=== PATIENT | female | born 1960 | race Caucasian/White ===

== ENCOUNTER 2020-01-04 00:31 | Emergency (ER) | payer OTHER, SELFPAY ==
[2020-01-04 00:50] VITALS: BP 142/93; PULSE 87; RESP 20; TEMP 37.1; O2SAT 95
--- NOTE | 2020-01-04 01:47 | ED.PSYCH ---
HPI - Psych General Chief Complaint: Psychiatric Symptoms <Douglas Ennis MD - Last Filed: 01/04/20 05:22> Stated Complaint: SI <Douglas Ennis MD - Last Filed: 01/04/20 05:22> Time Seen by Provider: 01/04/20 01:17 <Douglas Ennis MD - Last Filed: 01/04/20 05:22> History of Present Illness HPI Narrative: Patient is a 59-year-old female who presents to the ER with concerns for suicidal ideation. Patient is currently from her 27 years and they are discussing potential divorce. There is a heated exchange earlier in the day the patient was discussing her options and life never to be , not worse, or she could end her own life. This struck her cord with 1 of her sons who told her other son. That person then came over to her house check on her in the door. Argument ensued and police were contacted. She was then brought here for psychiatric evaluation. Patient has been drinking alcohol tonight. Patient reports she has history of previous suicide attempt during her first divorce back in the 80s in which she took a handful of pills to end her life. She has had no such attempts in her life since then. She denies any suicidal ideation or homicidal ideation at this time. She does not have any hallucinations. She also reports that she is started seeing a psychologist and her first meeting with a psychologist was yesterday. <Douglas Ennis MD - Last Filed: 01/04/20 05:22> Related Data Home Medications: Home Medications Medication Instructions Recorded Confirmed multivitamin 1 tablet PO DAILY 01/04/20 <Douglas Ennis MD - Last Filed: 01/04/20 05:22> Allergies/Adverse Reactions: Allergies Allergy/AdvReac Type Severity Reaction Status Date / Time Penicillins Allergy Unknown Other Verified 01/04/20 01:29 <Douglas Ennis MD - Last Filed: 01/04/20 05:22> Review of Systems Review of Systems: All systems reviewed & are unremarkable except as noted in HPI and below <Douglas Ennis MD - Last Filed: 01/04/20 05:22> Constitutional: Constitutional: Denies chills, Denies fever(s) and Denies weakness <Douglas Ennis MD - Last Filed: 01/04/20 05:22> ENT: Denies nasal congestion and Denies sore throat <Douglas Ennis MD - Last Filed: 01/04/20 05:22> Respiratory: Respiratory: Denies cough, Denies dyspnea and Denies wheezing <Douglas Ennis MD - Last Filed: 01/04/20 05:22> Gastrointestinal: Gastrointestinal: Denies abdominal pain, Denies nausea and Denies vomiting <Douglas Ennis MD - Last Filed: 01/04/20 05:22> Psychiatric: Psychiatric: Denies anxiety, Denies depression, Denies homicidal ideation and Denies suicidal ideation <Douglas Ennis MD - Last Filed: 01/04/20 05:22> PMFSH Past Medical History Medical History: Medical History (Updated 01/04/20 @ 08:53 by Estrella Martinez MD) AV leo re-entry tachycardia History of coronary artery disease History of left heart catheterization Non-ST elevation [place] (NSTEMI) <Douglas Ennis MD - Last Filed: 01/04/20 05:22> Surgical History Surgical History: Surgical History (Updated 01/04/20 @ 05:20 by Douglas Ennis MD) H/O cardiac radiofrequency ablation History of section History of D&C History of endometrial ablation <Douglas Ennis MD - Last Filed: 01/04/20 05:22> Social History Social History: Social History (Updated 01/04/20 @ 05:20 by Douglas Ennis MD) Smoking status: Current every day smoker Alcohol intake: current <Douglas Ennis MD - Last Filed: 01/04/20 05:22> Exam Narrative: Exam Narrative: GENERAL: Well-appearing, well-nourished, upset but in no acute distress. HEAD: Normocephalic, atraumatic. ENT: Mucous membranes moist. CHEST: Clear to auscultation. No respiratory distress. HEART: Regular rate and rhythm. Normal peripheral pulses. EXTREMITIES: Normal range of motion. No edema. SKIN: Warm, dry, no
[2020-01-04 02:14] LABS: Basophils Percent Auto 0.4 % (0.2-1.2); Eosinophils Absolute Auto 0.2 K/mm3 (0-0.3); Hematocrit 45.7 % (37.0-47.0); Hemoglobin 15.4 g/dL (12.0-15.0); Immature Granulocyte Absolute 0.02 K/mm3 (0.00-0.031); Immature Granulocyte Percent A 0.2 % (0-0.5); Mean Corpuscular HGB Conc 33.7 g/dl (32-36); Mean Corpuscular Hemoglobin 32.6 pg (26-34); Mean Corpuscular Volume 96.6 fl (80-100); Mean Platelet Volume 9.3 fl (7.4-10.4); Monocytes Absolute Auto 0.5 K/mm3 (0.1-0.6); Monocytes Percent Auto 5.3 % (2.6-8.5); Neutrophils Absolute Auto 5.1 K/mm3 (1.3-6.7); Neutrophils Percent Auto 60.1 % (45.5-73.1); Platelet Count Result 244 k/mm3 (150-375); Red Blood Count 4.73 M/mm3 (4.2-5.4); Red Cell Distribution Width 12.4 % (11.5-14.5); White Blood Count 8.5 K/mm3 (4.5-10.0)
[2020-01-04 02:21] LABS: Add Urine Microscopic? NO; Appearance Urine Clear (Clear); Bilirubin Urine Negative (Negative); Blood Urine Negative (Negative); Color Urine Straw (Yellow); Glucose Urine UA Negative (Negative); Ketones Urine Negative (Negative); Leukocyte Esterase Ur Negative LEU/UL (Negative); Nitrate Urine Negative (Negative); Protein Urine Negative (Negative); Urobilinogen Urine Negative mg/dL (<2.0)
[2020-01-04 02:23] LABS: Specific Grav Ur 1.004 (1.001-1.035)
[2020-01-04 02:27] LABS: Alanine Aminotransferase 49 U/L (4-35); Albumin Level 4.7 g/dL (3.5-5.1); Alkaline Phosphatase 68 U/L (38-126); Aspartate Amino Transferase 45 U/L (14-36); Bilirubin,Total 0.2 mg/dL (0.2-1.3); Blood Urea Nitrogen 14 mg/dL (7-17); Calcium 9.9 mg/dL (8.4-10.2); Carbon Dioxide 24 mmol/L (22-30); Chloride 106 mmol/L (98-107); Estimated CRCL calculation 110 ml/min; Estimated Glomerular Filt Rate > 60; Glucose 115 mg/dL (65-105); Potassium 3.7 mmol/L (3.4-5.0); Sodium 139 mmol/L (137-145)
[2020-01-04 02:56] LABS: Ethanol 187 mg/dL (<10)
--- NOTE | 2020-01-04 03:20 | PC.NURSE ---
Patient requested to speak with tattoo designer.
[2020-01-04 03:31] LABS: Barbiturate Screen Urine Negative (Negative); Benzodiazepines Screen Urine Negative (Negative)
[2020-01-04 03:42] LABS: Amphetamine Screen Urine Negative (Negative); Cannabinoid Screen Urine Negative (Negative); Cocaine Screen Urine Negative (Negative); Methadone Screen Urine Negative (Negative); Opiate Screen Urine Negative (Negative); Phencyclidine Screen Urine Negative (Negative)
[2020-01-04] MEDS: LORAZEPAM 1 MG TABLET PO (03:45)
[2020-01-04 06:15] VITALS: BP 156/89; PULSE 91; RESP 20; TEMP 37.1; O2SAT 96
--- NOTE | 2020-01-04 06:18 | PC.NURSE ---
Patient offered a breakfast menu and informed of her meal options, patient states I don't want anything to eat.
[2020-01-04 06:29] LABS: Ethanol 61 mg/dL (<10)
--- NOTE | 2020-01-04 06:31 | PC.NURSE ---
Patient's blood alcohol is below legal limit and per patient is medically cleared at this time and crisis can be contacted.
--- NOTE | 2020-01-04 06:32 | PC.NURSE ---
This nurse contacted Crisis and spoke with Demetrio in regards to having patient evaluated. Demetrio stated he will send someone out shortly to evaluate the patient.
--- NOTE | 2020-01-04 07:03 | PC.NURSE ---
Pt daughter Barbara Siddiqui here for an update on pt. She wishes to be called with an update. [phone]
[2020-01-04 09:13] VITALS: PULSE 90; RESP 20; O2SAT 98
--- NOTE | 2020-01-04 09:15 | PC.NURSE ---
0845 CRISIS HERE AND SAFETY CONTRACT SIGNED PT BEING DISCHARGED
== END 2020-01-04 09:15 | disposition home or self-care (01) ==
PROVIDERS: Emergency Medicine; Emergency Provider Emergency Medicine; PCP Family Medicine Adolescent Medicine
DX: R45.851 Suicidal ideations (principal); I25.2 Old myocardial infarction; I25.10 Atherosclerotic heart disease of native coronary artery without angina pectoris; F17.200 Nicotine dependence, unspecified, uncomplicated
CPT/HCPCS: 36415; 80053; 80307; 81003; 81025; 84443; 85025; 99284; A9270

== ENCOUNTER 2020-05-22 12:05 | Outpatient (NON) | payer OTHER, SELFPAY ==
[2020-05-23 19:52] LABS: SARS-CoV-2 RNA PCR Negative
== END 2020-05-22 12:06 ==
LOC: ANHCOVIDDT 12:05
PROVIDERS: PCP Family Medicine Adolescent Medicine; Visit Provider Family Medicine Adolescent Medicine
DX: Z20.828 Contact with and (suspected) exposure to other viral communicable diseases (principal); R05 Cough; R51.9 Headache, unspecified; R53.81 Other malaise
CPT/HCPCS: 87635; C9803; U0003

== ENCOUNTER 2023-04-16 07:59 | Emergency (ER) | payer BC, SELFPAY ==
--- NOTE | ~2023-04-16 | CT_ITS ---
EXAMINATION: CT brain wo con DATE: 04/16/2023 15:46 INDICATION: AMS . TECHNIQUE: Computed tomography (CT) of the head was performed without intravenous contrast. The mA wa s adjusted according to patient size. Iterative reconstruction technique was employed. The dose-lengt h product was 529.67 mGy-cm. COMPARISON: None. FINDINGS: No acute intracranial hemorrhage or extra-axial fluid collection. No hydrocephalus, mass, or herniation. No acute ischemic infarct. Unremarkable dural venous sinus attenuation. No acute osseous abnormality. Ethmoid mucosal thickening, trace left mastoid fluid, the remaining aerated spaces are clear. Mild atrophy and chronic white matter change. Atherosclerotic intracranial calcification. Bilateral l ens replacements. IMPRESSION: No acute intracranial process. Reviewed, dictated and finalized at location K.
--- NOTE | ~2023-04-16 | XR_ITS ---
XR chest 1V portable DATE: 04/16/2023 09:20 INDICATION: Anxiety, agitation TECHNIQUE: Portable AP chest on at 0915 hours COMPARISON: 04/02/2018 PA and lateral chest FINDINGS: Borderline heart size. There is aortic calcification and mild unfolding. There is pulmonary vascular redistribution suggesting pulmonary venous hypertension. No pulmonary consolidation., Pleural effusion or pneumothorax is detected. Osteopenia. Degenerative spurring of the thoracic spine. IMPRESSION: Borderline heart size and pulmonary vascular redistribution, suggesting mild congestive c hange Aortic atherosclerosis Osteopenia Reviewed, dictated and finalized at location A. IMPRESSION: Borderline heart size and pulmonary vascular redistribution, sugges ting mild congestive change Aortic atherosclerosis Osteopenia
[2023-04-16 08:06] VITALS: BP 176/115; PULSE 106; RESP 18; O2SAT 97
--- NOTE | 2023-04-16 08:09 | ED.PSYCH ---
HPI - Psych General Chief Complaint: Psychiatric Symptoms Stated Complaint: ANXIETY Time Seen by Provider: 04/16/23 08:05 Source: patient and family Mode of arrival: ambulatory Limitations: no limitations History of Present Illness HPI Narrative: 62 years old white female came to the emergency room by private car with her complaining of severe anxiety, been taking [id number] sleeping pills, CBD's, cannot sleep, tons of stress and anxiety over the last 3-1/2 years, been in conflict with her daughters over the last few months, was seen by her family physician yesterday and started on mood stabilizer, unknown name, patient drinks vodka daily, patient had suicidal ideation for the last 3-1/2 years got worse lately, does not have a plan. Lately patient been acting confused, saying nonsense, paranoia, hallucinating seeing the staff there, worried about some people following her. Patient never been seen by a psychiatrist, her daughter have history of bipolar. Patient smokes cigarette, drink vodka daily, uses marijuana daily. She denies any fever, chills, nausea, vomiting Related Data Home Medications Medication Instructions Recorded Confirmed multivitamin 1 tablet PO DAILY 01/04/20 04/15/23 Allergies Allergy/AdvReac Type Severity Reaction Status Date / Time Penicillins Allergy Unknown Other Verified 04/16/23 08:18 Review of Systems Review of Systems: All systems reviewed & are unremarkable except as noted in HPI and below PMFSH Past Medical History Medical History AV leo re-entry tachycardia History of coronary artery disease History of left heart catheterization Non-ST elevation [place] (NSTEMI) Surgical History Surgical History H/O cardiac radiofrequency ablation History of section History of D&C History of endometrial ablation Social History Social History Smoking status: Current every day smoker Alcohol intake: current Substance use: current Substance use type: marijuana Exam Narrative: General appearance: Well-developed, well-nourished, restless, agitated Skin: Normal color Head: Normocephalic, nontraumatic Eyes: Clear conjunctiva ENT: Oropharynx normal, ears normal, nose normal Neck: Supple, nontender Chest and respiratory: Airway patent, no respiratory distress, no accessory muscle use Heart: Regular rate/rhythm Abdomen: Soft, nontender, no organomegaly, quiet bowel sounds Vascular: Normal peripheral pulses, normal capillary refill. 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 Date: 04/16/23 Time: 11:36 Vital Signs Vital signs: Vital Signs Pulse Rate 106 H 04/16/23 08:06 Respiratory Rate 18 04/16/23 08:06 Blood Pressure 176/115 H 04/16/23 08:06 Pulse Oximetry 97 04/16/23 08:06 Oxygen Delivery Room Air 04/16/23 08:06 Temperature 36.6 C 04/16/23 11:47 Pulse Rate 91 04/16/23 14:59 Respiratory Rate 14 04/16/23 14:59 Blood Pressure 172/96 H 04/16/23 14:59 Pulse Oximetry 97 04/16/23 14:59 Oxygen Delivery Room Air 04/16/23 08:06 MDM - Psych MDM Narrative Medical decision making narrative: Patient came to the emergency room from home with her
--- NOTE | 2023-04-16 08:26 | ECG_ITS ---
Measurements Intervals [facility] Rate: 85 P: 60 NH: 172 QRS: 35 QRSD: 85 T: 58 QT: 376 QTc: 449 Interpretive Statements SINUS RHYTHM CANNOT RULE OUT INFERIOR INFARCTION, AGE-INDETERMINATE ABNORMAL EKG NO PREVIOUS ECG AVAILABLE FOR COMPARISON Electronically Signed On 04-16-2023 12:30:00 CDT by Eliot Griffin M.D.
[2023-04-16] MEDS: SODIUM CHLORIDE 0.9% IV 1,000 ML 999 ML IV CONT (08:36)
[2023-04-16] MEDS: LORazepam INJ (*CRX) 2 MG/ML VIAL IV PUSH (08:37)
[2023-04-16 08:49] LABS: Basophils Percent Auto 0.4 % (0.2-1.2); Eosinophils Absolute Auto 0.1 K/mm3 (0-0.3); Eosinophils Percent Auto 0.8 % (0-4.4); Hemoglobin 15.2 g/dL (12.0-15.0); Immature Granulocyte Absolute 0.03 K/mm3 (0.00-0.031); Immature Granulocyte Percent A 0.3 % (0-0.5); Lymphocytes Absolute Auto 2.12 K/mm3 (0.9-3.2); Mean Corpuscular HGB Conc 33.8 g/dl (32-36); Mean Corpuscular Hemoglobin 32.5 pg (26-34); Mean Corpuscular Volume 96.2 fl (80-100); Mean Platelet Volume 9.3 fl (7.4-10.4); Monocytes Absolute Auto 0.6 K/mm3 (0.1-0.6); Neutrophils Absolute Auto 8.3 K/mm3 (1.3-6.7); Neutrophils Percent Auto 74.5 % (45.5-73.1); Platelet Count Result 312 k/mm3 (150-375); Red Blood Count 4.68 M/mm3 (4.2-5.4); Red Cell Distribution Width 13.2 % (11.5-14.5); White Blood Count 11.2 K/mm3 (4.5-10.0)
[2023-04-16] MEDS: OLANZapine 5 MG TABLET PO (08:49)
[2023-04-16 08:54] LABS: Appearance Urine Clear (Clear); Bacteria Urine None Seen /hpf; Bilirubin Urine Negative (Negative); Blood Urine Negative (Negative); Color Urine Yellow (Yellow); Glucose Urine UA Negative (Negative); Ketones Urine Negative (Negative); Leukocyte Esterase Ur Negative LEU/UL (Negative); Nitrate Urine Negative (Negative); Non Pathogenic Casts 0-2; Protein Urine Trace mg/dL (Negative); RBC Urine 0-2 /hpf (0-2); Specific Grav Ur 1.005 (1.001-1.035); Squamous Epithelial Cell Urine Occasional /hpf (Few); Urobilinogen Urine 0.2 mg/dL (<2.0); WBC Urine 0-5 /hpf
[2023-04-16 08:56] LABS: INR 0.9; Prothrombin Time 12.2 Seconds (11.1-14.7)
[2023-04-16 08:57] LABS: Partial Thromboplastin Time 38.8 SECONDS (22.3-36.8)
[2023-04-16 08:58] LABS: Acetaminophen < 10 ug/mL (10-30); Alanine Aminotransferase 26 U/L (6-35); Albumin Level 4.8 g/dL (3.5-5.1); Alkaline Phosphatase 70 U/L (38-126); Anion Gap 8 mmol/L (8-16); Aspartate Amino Transferase 32 U/L (14-36); Bilirubin,Total 0.9 mg/dL (0.2-1.3); Blood Urea Nitrogen 5 mg/dL (7-17); Carbon Dioxide 30 mmol/L (22-30); Chloride 93 mmol/L (98-107); Creatine Kinase 172 U/L (30-135); Estimated CRCL calculation 111 ml/min; Estimated Glomerular Filt Rate > 60; Ethanol < 10 mg/dL (<10); Glucose 108 mg/dL (65-110); Potassium 3.7 mmol/L (3.4-5.0); Salicylate < 1.0 mg/dL (2-20); Sodium 131 mmol/L (137-145)
[2023-04-16 09:04] LABS: Amphetamine Screen Urine Negative (Negative); Barbiturate Screen Urine Negative (Negative); Benzodiazepines Screen Urine Negative (Negative); Cannabinoid Screen Urine Positive (Negative); Cocaine Screen Urine Negative (Negative); Methadone Screen Urine Negative (Negative); Opiate Screen Urine Negative (Negative); Phencyclidine Screen Urine Negative (Negative)
[2023-04-16 09:04] LABS: Alveolar/Arterial O2 Gradient 27.5 mmHg; Base Excess ABG 1.5 mEq/l (+/-2.0); Fractional Inspired Oxygen 21 %; HCO3 ABG 25.3 mEq/l (22.0-26.0); Oxygen Content ABG 18.7 %vol (16.0-22.0); Oxygen Saturation ABG 96.1 % (95.0-100.0); Oxyhemoglobin 91.4 % THb (90.0-100.0); PCO2 ABG 37.1 mmHg (35.0-45.0); PO2 ABG 77.8 mmHg (80.0-100.0); Total Hemoglobin 14.5 g/dL (12.0-18.0); pH ABG 7.451 (7.350-7.450)
[2023-04-16 09:05] LABS: Device ROOM AIR; Modified Allen's Test Pass; Site Drawn RIGHT RADIAL
[2023-04-16 09:07] LABS: Add Urine Microscopic? YES
[2023-04-16 09:24] LABS: SARS-CoV-2 RNA PCR Negative (Negative)
--- NOTE | 2023-04-16 10:59 | PC.NURSE ---
Crisis at bedside for pt eval.
[2023-04-16 11:47] VITALS: BP 187/101; PULSE 94; RESP 20; TEMP 36.6; O2SAT 100
--- NOTE | 2023-04-16 12:01 | PC.NURSE ---
pt got food tray
--- NOTE | 2023-04-16 13:15 | PC.NURSE ---
Per Rocio vallejo/ Sarah, pt chart faxed to [phone] at this time.
[2023-04-16 14:59] VITALS: BP 172/96; PULSE 91; RESP 14; O2SAT 97
--- NOTE | 2023-04-16 15:36 | PC.NURSE ---
Carine from [facility] called to inform the facility will accept this pt pending neg CT brain imaging. Discussed w/ EDP Dr Tan and CT ordered as requested.
--- NOTE | 2023-04-16 15:40 | PC.NURSE ---
Pt to CT scan via stretcher at this time.
--- NOTE | 2023-04-16 16:05 | PC.NURSE ---
Neg CT imaging report faxed to [facility] as requested [phone], called office to notify fax was sent.
[2023-04-16] MEDS: LORazepam INJ (*CRX) 2 MG/ML VIAL 1 MG IV PUSH (21:24)
== END 2023-04-16 23:21 | disposition short-term general hospital (02) ==
PROVIDERS: Emergency Provider Emergency Medicine; PCP Family Medicine Adolescent Medicine
DX: F32.A Depression, unspecified (principal); F29 Unspecified psychosis not due to a substance or known physiological condition; R45.851 Suicidal ideations; Z11.52 Encounter for screening for COVID-19; I25.10 Atherosclerotic heart disease of native coronary artery without angina pectoris; I25.2 Old myocardial infarction; F17.210 Nicotine dependence, cigarettes, uncomplicated; Z79.899 Other long term (current) drug therapy; M85.80 Other specified disorders of bone density and structure, unspecified site; I70.0 Atherosclerosis of aorta; R94.31 Abnormal electrocardiogram [ECG] [EKG]
CPT/HCPCS: 36415; 36600; 70450; 71045; 80053; 80307; 81001; 82550; 82805; 84443; 85025; 85610; 85730; 87635; 93005; 96361; 96374; 96375; 99284; 99285; A9270; J2060; J7030

== ENCOUNTER 2023-10-17 16:34 | Outpatient (CLI) | payer BC, SELFPAY ==
[2023-10-17 16:53] LABS: Basophils Absolute Auto 0.1 K/mm3 (0.0-0.1); Basophils Percent Auto 0.6 % (0.2-1.2); Eosinophils Absolute Auto 0.3 K/mm3 (0-0.3); Eosinophils Percent Auto 3.7 % (0-4.4); Hematocrit 42.4 % (37.0-47.0); Hemoglobin 13.8 g/dL (12.0-15.0); Immature Granulocyte Absolute 0.02 K/mm3 (0.00-0.031); Immature Granulocyte Percent A 0.2 % (0-0.5); Lymphocytes Absolute Auto 3.61 K/mm3 (0.9-3.2); Lymphocytes Percent Auto 43.3 % (18.3-44.2); Mean Corpuscular HGB Conc 32.5 g/dl (32-36); Mean Corpuscular Hemoglobin 30.3 pg (26-34); Mean Corpuscular Volume 93.2 fl (80-100); Mean Platelet Volume 8.8 fl (7.4-10.4); Monocytes Absolute Auto 0.4 K/mm3 (0.1-0.6); Monocytes Percent Auto 5.3 % (2.6-8.5); Neutrophils Absolute Auto 3.9 K/mm3 (1.3-6.7); Neutrophils Percent Auto 46.9 % (45.5-73.1); Platelet Count Result 350 k/mm3 (150-375); Red Blood Count 4.55 M/mm3 (4.2-5.4); Red Cell Distribution Width 13.2 % (11.5-14.5); White Blood Count 8.3 K/mm3 (4.5-10.0)
[2023-10-17 19:53] LABS: Alanine Aminotransferase 12 U/L (6-35); Albumin Level 4.4 g/dL (3.5-5.1); Alkaline Phosphatase 75 U/L (38-126); Anion Gap 7 mmol/L (4-12); Aspartate Amino Transferase 21 U/L (14-36); Bilirubin,Total 0.6 mg/dL (0.2-1.3); Blood Urea Nitrogen 12 mg/dL (7-17); Calcium 9.8 mg/dL (8.4-10.2); Carbon Dioxide 23 mmol/L (22-30); Chloride 108 mmol/L (98-107); Cholesterol 232 mg/dL (0-200); Estimated Glomerular Filt Rate > 60; Glucose 95 mg/dL (65-110); HDL Direct 65 mg/dL; Potassium 4.3 mmol/L (3.4-5.0); Sodium 138 mmol/L (137-145); Triglycerides 121 mg/dL (<150)
[2023-10-17 19:55] LABS: LDL Cholesterol Direct 121 mg/dL
[2023-10-18 00:07] LABS: Hemoglobin A1C 5.4 % (<5.7)
== END 2023-10-17 16:35 | disposition home or self-care (01) ==
LOC: ANHLAB 16:36
PROVIDERS: PCP Family Medicine Adolescent Medicine; Visit Provider Nurse Practitioner Family
DX: I25.10 Atherosclerotic heart disease of native coronary artery without angina pectoris (principal); F31.9 Bipolar disorder, unspecified
CPT/HCPCS: 36415; 80053; 80061; 82607; 83036; 84443; 85025

== ENCOUNTER 2024-03-04 13:37 | Emergency (ER) | payer SELFPAY ==
--- NOTE | 2024-03-04 13:43 | PC.NURSE ---
Patient walked out of department as soon as EMS dropped her off. patient left prior to triage
--- NOTE | 2024-03-04 16:16 | ECG_ITS ---
Test Date: 2024-03-04 16:16:32 Measurements Intervals [place] Rate: 117 P: 92 HI: 158 QRS: 39 QRSD: 86 T: 49 QT: 338 QTc: 473 Interpretive Statements SINUS TACHYCARDIA POSSIBLE INFERIOR MYOCARDIAL INFARCTION , PROBABLY OLD [30 ms Q WAVE IN II/aVF] ABNORMAL RHYTHM ECG No previous ECG available for comparison Electronically Signed On 03-06-2024 07:11:09 CDT by Moncho Cruz M.D.
== END 2024-03-04 14:05 | disposition left against medical advice (07) ==
LOC: ANHED 13:47
PROVIDERS: Emergency Provider Student in an Organized Health Care Education/Training Program; PCP Family Medicine Adolescent Medicine
DX: Z53.21 Procedure and treatment not carried out due to patient leaving prior to being seen by health care provider (principal)
CPT/HCPCS: 93005; 99199

== ENCOUNTER 2024-03-04 16:01 | Emergency (ER) | payer SELFPAY ==
[2024-03-04] VITALS (77 sets, daily range): BP systolic 120–213; BP diastolic 60–196; PULSE 64–118; RESP 10–69; TEMP 36.6–37.2; O2SAT 90–100
[2024-03-04 16:45] LABS: BEDSIDEPREGUCG Negative
[2024-03-04 16:47] LABS: Basophils Percent Auto 0.4 % (0.2-1.2); Eosinophils Absolute Auto 0.1 K/mm3 (0-0.3); Eosinophils Percent Auto 1.4 % (0-4.4); Hemoglobin 14.4 g/dL (12.0-15.0); Immature Granulocyte Absolute 0.03 K/mm3 (0.00-0.031); Immature Granulocyte Percent A 0.3 % (0-0.5); Lymphocytes Absolute Auto 2.19 K/mm3 (0.9-3.2); Lymphocytes Percent Auto 23.4 % (18.3-44.2); Mean Corpuscular HGB Conc 33.5 g/dl (32-36); Mean Corpuscular Hemoglobin 31.2 pg (26-34); Mean Corpuscular Volume 93.3 fl (80-100); Mean Platelet Volume 9.6 fl (7.4-10.4); Monocytes Absolute Auto 0.6 K/mm3 (0.1-0.6); Monocytes Percent Auto 6.5 % (2.6-8.5); Neutrophils Absolute Auto 6.4 K/mm3 (1.3-6.7); Platelet Count Result 330 k/mm3 (150-375); Red Blood Count 4.61 M/mm3 (4.2-5.4); Red Cell Distribution Width 13.8 % (11.5-14.5); White Blood Count 9.4 K/mm3 (4.5-10.0)
--- NOTE | 2024-03-04 16:55 | ED.PSYCH ---
HPI - Psych General Chief Complaint: Psychiatric Symptoms <Alvin Macias MD - Last Filed: 03/05/24 14:39> Stated Complaint: psych <Alvin Macias MD - Last Filed: 03/05/24 14:39> Time Seen by Provider: 03/04/24 16:11 <Alvin Macias MD - Last Filed: 03/05/24 14:39> History of Present Illness HPI Narrative: This is a 63-year-old female with a past medical history significant for bipolar schizoaffective depression who presents to the emergency department today via EMS and police. Patient was registered to the patient earlier today when she was dropped off by private vehicle but was not able to be evaluated by physician and had eloped from the emergency department. Today her family members who are present at bedside to provide collateral information states that she was having a psychotic break and having extreme paranoia delusions while at home. She was stating things that were not true and acting as if people are trying to get and hurt her. Patient has a history of this and has had a previous psychiatric episode requiring admission. Unclear if takes any medications presently but she is supposed to be on multiple antipsychotics according the family. Patient was needing chemical restraint in the field and was provided total 350 mg of IM ketamine and placed into 4 point restraints upon arrival to the ED after my [id number]-er-[id number] evaluation. Patient not able to participate in history. Remainder of history provided by family and EMR review. <Alvin Macais MD - Last Filed: 03/05/24 14:39> Related Data Home Medications: Home Medications Medication Instructions Recorded Confirmed multivitamin 1 tablet PO DAILY 01/04/20 08/05/23 <Alvin Macias MD - Last Filed: 03/05/24 14:39> Allergies/Adverse Reactions: Allergies Allergy/AdvReac Type Severity Reaction Status Date / Time Penicillins Allergy Unknown Other Verified 03/04/24 13:39 <Alvin Macias MD - Last Filed: 03/05/24 14:39> Review of Systems Review of Systems: Unable to assess 2/2 to patient's mental status <Alvin Macias MD - Last Filed: 03/05/24 14:39> [facility] Past Medical History Medical History: Medical History AV leo re-entry tachycardia History of coronary artery disease History of left heart catheterization Non-ST elevation [place] (NSTEMI) <Alvin Macias MD - Last Filed: 03/05/24 14:39> Surgical History Surgical History: Surgical History H/O cardiac radiofrequency ablation History of section History of D&C History of endometrial ablation <Alvin Macias MD - Last Filed: 03/05/24 14:39> Social History Social History: Social History Smoking status: Current every day smoker Alcohol intake: current Substance use: current Substance use type: unknown Do You Feel Safe in your Home?: Yes Lack of Transportation: No Lack of Food: Never True Current Housing: I Have Housing Concerned About Future Housing: No Difficulty Paying Gas/Electric Bills: No Difficulty Paying for Meds: No Currently Unemployed: No Education: Bachelor's Degree Difficulty w/ Childcare or Family Care: Decline to Answer <Alvin Macias MD - Last Filed: 03/05/24 14:39> Exam Narrative: GENERAL: Presently chemically restrained in 4 point restraints, not awake but not any acute distress HEAD: [Normocephalic, atraumatic.] Pupils are 3 mm and reactive without any conjunctival injection EYES: [PERRLA and EOMI.] ENT: Nares clear, no rhinorrhea or epistaxis. Mucous membranes moist. NECK: Supple. CHEST: [Clear to auscultation. No respiratory distress.] HEART: [Regular rate and rhythm]. No murmur heard. [Normal peripheral pulses.]
[2024-03-04 16:57] LABS: Ethanol < 10 mg/dL (<10)
[2024-03-04 16:59] LABS: Alanine Aminotransferase 21 U/L (6-35); Albumin Level 4.6 g/dL (3.5-5.1); Alkaline Phosphatase 91 U/L (38-126); Anion Gap 14 mmol/L (4-12); Aspartate Amino Transferase 34 U/L (14-36); Bilirubin,Total 0.7 mg/dL (0.2-1.3); Blood Urea Nitrogen 10 mg/dL (7-17); Calcium 9.8 mg/dL (8.4-10.2); Carbon Dioxide 20 mmol/L (22-30); Chloride 107 mmol/L (98-107); Estimated CRCL calculation 79 ml/min; Estimated Glomerular Filt Rate > 60; Glucose 152 mg/dL (65-110); Potassium 3.2 mmol/L (3.4-5.0); Sodium 141 mmol/L (137-145)
[2024-03-04 17:05] LABS: Add Urine Microscopic? YES; Amphetamine Screen Urine Negative (Negative); Appearance Urine Cloudy (Clear); Bacteria Urine Rare /hpf; Barbiturate Screen Urine Negative (Negative); Benzodiazepines Screen Urine Negative (Negative); Bilirubin Urine 2+ (Negative); Blood Urine Negative (Negative); Cannabinoid Screen Urine Positive (Negative); Cocaine Screen Urine Negative (Negative); Color Urine Dark Yellow (Yellow); Glucose Urine UA Negative (Negative); Ketones Urine Trace mg/dL (Negative); Leukocyte Esterase Ur Trace LEU/UL (Negative); Methadone Screen Urine Negative (Negative); Mucus Urine Present /lpf; Need Manual Microscopic Reviewed; Nitrate Urine Negative (Negative); Non Pathogenic Casts >20; Opiate Screen Urine Negative (Negative); Phencyclidine Screen Urine Negative (Negative); Protein Urine 2+ mg/dL (Negative); Specific Grav Ur 1.021 (1.001-1.035); Squamous Epithelial Cell Urine Occasional /hpf (Few); WBC Urine 0-5 /hpf (0-3)
[2024-03-04 17:30] LABS: Acetaminophen < 10 ug/mL (10-30); Salicylate < 1.0 mg/dL (2-20)
[2024-03-04] MEDS: HALOPERIDOL LACTATE 5 MG/ML VIAL (17:48)
[2024-03-04] MEDS: LORazepam INJ (*CRX) 2 MG/ML VIAL 4 MG (17:48)
[2024-03-04 17:53] LABS: Influenza A QL RT-PCR Negative (Negative); Influenza B QL RT-PCR Negative (Negative); RSV RNA, RT-PCR Negative (Negative); SARS-CoV-2 RNA PCR Negative (Negative)
--- NOTE | 2024-03-04 22:39 | PC.NURSE ---
Patient arrived to ED talking gibberish, and screaming and yelling that she needed help. patient thrashing around in the bed, climbing out of bed, patient began dancing naked in the room and attempting to walk out of the room. this RN went into the patients room to assist and she began hugging and yelling to me that she needed help, that she killed him and is so sorry, that she just had to do it, he kept to put his penis inside me even though i told him no patient continued to yell and hug and grab until she was assisted back to bed by multiple nurses, techs, and staff including security. the decision was made to give haldol and ativan. patient continued to keep taking her monitors off and vital signs were impossible to get patient hooked back up to monitor as soon as able. and vital signs were continued to be monitored. Patient restraints were removed as soon as patient was no longer being violent.
--- NOTE | 2024-03-04 23:49 | PC.NURSE ---
patient is waking up with light touch, is able to tell me where she is but not able to answer any other questions at this time.
[2024-03-05] VITALS (14 sets, daily range): BP systolic 83–166; BP diastolic 71–92; PULSE 63–88; RESP 14–28; TEMP 36.3–36.6; O2SAT 97–99
--- NOTE | 2024-03-05 00:39 | PC.NURSE ---
Pt still not at capacity to speak with crisis. Will open eyes, but not answer questions and starts to cry, covering herself with a blanket.
--- NOTE | 2024-03-05 07:23 | PC.NURSE ---
Assumed care of pt. Pt resting on stretcher with reg resp. RN left pt undisturbed at this time
[2024-03-05] MEDS: LORazepam (*CRX) 1 MG TABLET (08:09)
--- NOTE | 2024-03-05 08:10 | PC.NURSE ---
Estrella Solon [phone]
--- NOTE | 2024-03-05 08:31 | PC.NURSE ---
Crisis evaluated pt. Pt to be admitted to Psych Facility Involuntary. Pt roaming in halls standing at exit. Pt redirected to room. Pt requested somthing besides a bed to sit in? . Recliner given.
--- NOTE | 2024-03-05 09:04 | PC.NURSE ---
03/05/24 09:02 - Nurse Note by BERNARDINO Norwood. workers' compensation hearings officer informed pt of IP treatment planned & waiting on acceptance. Pt request family be called. Informed pt the phone number for her son Jamal is disconnected. Initialized on 03/05/24 09:02 - END OF NOTE
--- NOTE | 2024-03-05 10:15 | PC.NURSE ---
Pt provided with socks, toiletries and new remote for TV
--- NOTE | 2024-03-05 11:14 | PC.NURSE ---
Rosa with [facility] [place] requesting updated Involuntary Documents to be faxed to [phone]
--- NOTE | 2024-03-05 12:33 | PC.NURSE ---
Pts sister Estrella called for pt update. Estrella states pt daughter Lala is coming to see pt, Lala is pts health care consultant
--- NOTE | 2024-03-05 12:48 | PC.NURSE ---
RN spoke with Babs with [facility] beds available at their facility. Pt information faxed to [phone]
--- NOTE | 2024-03-05 12:55 | PC.NURSE ---
Pt refusing lunch or any snacks at this time
--- NOTE | 2024-03-05 15:25 | PC.NURSE ---
Pt daughter brought pt belongings from home, RN secured in locked cabinet. Pt & daughter informed of acceptance to [facility] with transportation eta 1900
--- NOTE | 2024-03-05 17:07 | PC.NURSE ---
Pt daughter Lala states pt lost her insurance in November, she believes pt has not taken any medication since loosing insurance
[2024-03-05] MEDS: NICOTINE (*PBKC) 14 MG PATCH 1 PATCH TRANSDERM (17:45)
[2024-03-05] MEDS: ACETAMINOPHEN 500 MG TABLET 1000 MG PO (20:24)
== END 2024-03-06 00:44 ==
PROVIDERS: Emergency Provider Student in an Organized Health Care Education/Training Program; PCP Family Medicine Adolescent Medicine
DX: F23 Brief psychotic disorder (principal); Z20.822 Contact with and (suspected) exposure to COVID-19; I25.2 Old myocardial infarction
CPT/HCPCS: 36415; 80053; 80307; 81001; 81025; 84443; 85025; 87637; 93005; 96374; 96375; 99285; A9270; J1630; J2060